=== PATIENT | female | born 1990 | race Caucasian/White ===

== ENCOUNTER 2018-07-29 10:46 | Emergency (ER) | payer BC, SELFPAY ==
[2018-07-29 10:47] VITALS: BP 131/90; PULSE 92; RESP 16; TEMP 37.1; O2SAT 98; BMI 53.6
[2018-07-29 11:00] VITALS: BP 131/93; PULSE 98; RESP 20; TEMP 36.4; O2SAT 98
--- NOTE | 2018-07-29 11:09 | RAD_ITS ---
STUDY: X-RAY CHEST REASON FOR EXAM: Female, 27 years old. Cough and shortness of breath. TECHNIQUE: PA and lateral views of the chest. COMPARISON: None. FINDINGS: The lungs are clear and expanded. There is no demonstrated pleural abnormality. Normal size heart. Normal mediastinum and yareli. Normal visualized pulmonary arteries. Normal visualized aortic arch and descending thoracic aorta. Normal visualized thoracic spine. Normal visualized ribs, clavicles, and shoulders. There is no demonstrated abnormality of the visualized soft tissue structures of the upper abdomen. RAD/Chest PA and Lateral IMPRESSION: Normal x-ray examination of the chest. Electronically Signed: Eleazar Roberts, at 11:38 EDT , Service support ,
[2018-07-29] MEDS: Naproxen 250 MG Tablet 500 MG PO (11:17)
[2018-07-29] MEDS: AMOXICILLIN 500 MG CAPSULE PO (11:17)
--- NOTE | 2018-07-29 11:34 | ED.DCSUM_ITS ---
- ER Visit Summary Date of Service: 07/29/18 Chief Complaint: Shortness of breath and lip swelling History of Present Illness: The patient is a 27 F with no primary care physician. She reports that she has shortness of breath that began yesterday. She has had a nonproductive cough for the past 2 days. States that she has been wheezing. She does not have an inhaler that she uses. She denies any fever or chills. Patient also reports that she has swelling to upper lip that began yesterday. She denies any dental pain. Physical Examination: Vitals: Stable. Afebrile. General: Well-nourished and well-developed. Head: Normocephalic atraumatic. Dental: She has an 8 dentulous mandible. There are diffuse caries over all of her maxillary teeth. There is no focal abscess. However, there is soft tissue swelling to the right side of her upper lip with a thickened area consistent with an abscess. This is not amenable to drainage. Neck: Supple, no lymphadenopathy. No JVD. Nontender. Cardiovascular: Regular rate and rhythm. No murmurs. Respiratory: No respiratory distress. Mild wheezing bilaterally with good air movement. Abdominal: Soft, nontender, nondistended, normal bowel sounds. No guarding, rebound, or peritoneal signs. Back: Nontender. Extremities: Nontender, no edema. Skin: Normal color, no rash. Neurologic: Alert and oriented ?3. Cranial nerves II through XII are intact. Normal strength and sensation. Psych: Normal affect. Test Results: Chest x-ray shows no acute disease. Emergency Department Course and Treatment: Patient was treated with amoxicillin and naproxen p.o. She was also treated with an albuterol MDI. She is resting comfortably. Treatment Plan: Patient will be discharged instructions to follow-up the dentist as soon as possible. She is given a list of local dentist. [facility] is also [facility] if her breathing is not improved. Return to the emergency department for any worsening symptoms. Disposition: To home in improved and stable condition. Impression: 1. URI. 2. Dental abscess. This note was generated with [employer] software. It may contain incorrect words, spelling, and punctuation that were not noted in review of the chart prior to signing ED Disposition - Plan for ED Patient: Disposition: Home or Assisted Living Instructions: ED Upper Resp Infec No Abx Tx, ED Abscess Dental Prescriptions: Naproxen [Naprosyn] 500 mg PO BID #14 tablet Amoxicillin 500 mg PO TID #30 tablet Referrals: Dentist,Your [STAFF PHYSICIAN] - As soon as possible Leilani Diallo [NON-STAFF] - 1 Week if not improving
== END 2018-07-29 11:54 | disposition home or self-care (01) ==
LOC: ED 11:53
PROVIDERS: Emergency Provider Emergency Medicine
DX: J06.9 Acute upper respiratory infection, unspecified (principal); K04.7 Periapical abscess without sinus; F41.9 Anxiety disorder, unspecified; F32.9 Major depressive disorder, single episode, unspecified; Z79.899 Other long term (current) drug therapy
CPT/HCPCS: 71046; 94640; 99285